=== PATIENT | female | born 1945 | race Caucasian/White ===

== ENCOUNTER 2020-04-28 06:15 | Day surgery (SDC) | payer MEDICARE, BC, OTHER ==
[~2020-04-28] VITALS: Ht 170.2 cm; Wt 101.0 kg
[~2020-04-28 06:15] MED LIST: ACYCLOVIR400 MG PO; ARICEPT5 MG PO; CLARITIN10 M2; DIFLUCAN200 MG PO; DOXYCYCLINE HY100 MG PO; LEVOTHYROXINE75 MC1 PO; MACUVITE EYE C1 EACH PO; MOVE FREE ULTR1 EAC2 PO; NAPROSYN500 MG PO; OMEPRAZOLE20 MG PO; OXYBUTYNIN CHLO15 MG PO; ZYLOPRIM300 MG PO
[2020-04-28] MEDS ORDERED: HYDROCODON-ACE1 EA10 PO (08:21)
--- NOTE | 2020-04-28 08:26 | NUR ---
04/28/20 0826 Porsha Coon 0820: PT ARRIVES TO PACU SLIGHTLY DROWSY, BUT QUICKLY WAKES UP. SHE IS REPORTING NO PAIN AT THIS TIME. ICE TO THE RIGHT HAND
--- NOTE | 2020-04-28 11:07 | OR ---
[facility] [address], [place] [address] Signed DATE OF OPERATION: 04/28/2020 SURGEON: Olya Salmeron MD PREOPERATIVE DIAGNOSIS: Carpal tunnel syndrome, right. POSTOPERATIVE DIAGNOSIS: Carpal tunnel syndrome, right. PROCEDURE PERFORMED: Right carpal tunnel release. COMIC ARTIST: None. ANESTHESIA: Romie block. TOURNIQUET TIME: 14 minutes. BRIEF HISTORY: Michael is a 74-year-old female with progressive worsening of numbness and tingling in her hand. Risks and benefits of operative treatment were discussed with her after nerve conduction studies confirmed the carpal tunnel. DESCRIPTION OF PROCEDURE: Once consent was obtained, she was taken to the operating room. After adequate anesthesia, she was placed on the operating room table, all downside pressure points were well padded. The arm was prepped and draped in a standard sterile fashion. A 1.5 cm incision was made in the distal wrist crease, carried through skin and subcutaneous tissue and the bleeders were cauterized. The palmaris longus was identified, retracted and protected. The transverse carpal ligament was identified, dissected free of overlying soft tissue and under loupe magnification, it was released proximally a cm and distally to the distal extent of the transverse carpal ligament. This was visualized and palpated using the [place]. The wound was then copiously irrigated with normal saline, closed with 3-0 nylon and infiltrated with 7 mL of 0.25% plain Marcaine. The wound was dressed with bacitracin, Adaptic, 4 x 4 and gauze. She tolerated the procedure well. Electronically Signed By: OLYA SALMERON MD 04/28/20 1107 PATIENT NAME: MICHAEL HE OPERATIVE REPORT DATE OF : 41 REPORT #: [id number] PHYSICIAN: OLYA SALMERON MD PCP: OTHER PCP REPORT IS CONFIDENTIAL AND NOT TO BE RELEASED WITHOUT AUTHORIZATION [facility] [address] [facility], [place] [address] Signed All sponge, needle, and instrument counts were correct. Olya Salmeron MD BA/MODL /[id number] Copies: ~ Electronically Signed By: OLYA SALMERON MD 04/28/20 1107 PATIENT NAME: MICHAEL HE OPERATIVE REPORT DATE OF : 41 REPORT #: [id number] PHYSICIAN: OLYA SALMERON MD PCP: OTHER PCP REPORT IS CONFIDENTIAL AND NOT TO BE RELEASED WITHOUT AUTHORIZATION
== END 2020-04-28 09:00 | disposition home or self-care (01) ==
LOC: DS 06:15 → OPS 06:15
PROVIDERS: ATTEND Specialist
PROC: 01N50ZZ Release Median Nerve, Open Approach (ICD-10-PCS; principal; 2020-04-28 08:00)
DX: G56.01 Carpal tunnel syndrome, right upper limb (principal); M19.90 Unspecified osteoarthritis, unspecified site; G30.0 Alzheimer's disease with early onset; F02.80 Dementia in other diseases classified elsewhere, unspecified severity, without behavioral disturbance, psychotic disturbance, mood disturbance, and anxiety; I10 Essential (primary) hypertension; E78.00 Pure hypercholesterolemia, unspecified; Z87.891 Personal history of nicotine dependence
CPT/HCPCS: 01810; J0690; J1885; J2001; J2250; J2405; J2704; J7121